=== PATIENT | female | born 1960 | race Caucasian/White ===

== ENCOUNTER 2020-03-04 17:06 | Outpatient (CLI) | payer OTHER | END 2020-03-04 17:07 | disposition home or self-care (01) | LOC: COV 17:06 | PROVIDERS: ATTEND Family Medicine | DX: R11.2 Nausea with vomiting, unspecified (principal); M79.10 Myalgia, unspecified site; Z20.822 Contact with and (suspected) exposure to COVID-19 ==

== ENCOUNTER 2022-12-10 08:00 | Outpatient (CLI) | payer OTHER ==
[2022-12-10 19:59] LABS: BILIRUBIN,URINE NEGATIVE (NEGATIVE); GLUCOSE, URINE (UA) NEGATIVE (NEGATIVE); KETONES,URINE (UA) NEGATIVE (NEGATIVE); LEUKOCYTE ESTERASE, URINE TRACE (NEGATIVE); NITRITE,URINE NEGATIVE (NEGATIVE); OCCULT BLOOD,URINE TRACE-INTA (NEGATIVE); PROTEIN,URINE NEGATIVE (NEGATIVE); UROBILINOGEN,URINE 0.2 (NORMAL) E.U./dL (NORMAL)
[2022-12-10 20:01] LABS: CLARITY,URINE CLEAR (CLEAR)
[2022-12-10 20:30] LABS: BACTERIA,URINE Rare /HPF (None Seen); RBC,URINE 0-5 /HPF (0-5); SQUAMOUS EPITHELIAL CELL,UR NONE SEEN (<= Few)
== END 2022-12-10 23:59 | disposition home or self-care (01) ==
LOC: LAB.R 08:00
DX: N39.0 Urinary tract infection, site not specified (principal)
CPT/HCPCS: 81001; 81003